=== PATIENT | male | born 1980 | race Two or more races ===

== ENCOUNTER 2018-06-29 12:30 | Inpatient (IN) | payer BC ==
[~2018-06-29] VITALS: Ht 175.3 cm; Wt 83.0 kg
[2018-06-29 15:00] VITALS: BP 113/73
[2018-06-29] MEDS ORDERED: PROP10TA PO (17:15)
[2018-06-29] MEDS ORDERED: TRAZ-85 PO (17:15)
[2018-06-29] MEDS ORDERED: ASPI325T11 PO (17:15)
[2018-06-29] MEDS ORDERED: SERT50TA PO (17:15)
[2018-06-29] MEDS ORDERED: CHOL10003 PO (17:17)
--- NOTE | 2018-06-29 18:38 | HP ---
ADMIT DATE: 06/29/2018 CHIEF COMPLAINT: DVT. HISTORY OF PRESENT ILLNESS: The patient is a pleasant middle-aged male who showed up on the floor today, was told to come in as a direct admit. I never really got a call. I am not sure if one of our departments may have gotten a call, but I told the team that we would do the right thing and take care of the patient. Apparently, I think he may have come from one of the Orthopedics office. DICTATION ENDS HERE MAGUI RECINOS DO DR: ROSIO/park JOB#: [id number] / [id number]
--- NOTE | 2018-06-29 18:46 | HP ---
ADMIT DATE: 06/29/2018 CHIEF COMPLAINT: DVT. HISTORY OF PRESENT ILLNESS: The patient is a pleasant middle-aged male who showed up on the floor today as a direct admit. I am not sure who they called. The nurses called me and explained that he showed up and I really did not know anything about him, maybe they called one of my partners. I did accept the patient. We got him fully admitted. We started him on Lovenox. An hour or so later, I did get a call from Dr. Waller's office from a nurse. She states that they had a patient that they want to send over, so I suspect maybe that is where he came from. Nevertheless, we are treating the patient. We gave him Lovenox. I get his home meds going and get him treated. PAST MEDICAL HISTORY: Hypertension, depression, anxiety. ALLERGIES: None. FAMILY HISTORY: Hypertension. SOCIAL HISTORY: I do not think he drinks, smokes or takes drugs. His mom is here with him. I think he might live with his mom. MEDICATIONS: Reviewed. He is on propranolol, aspirin, Zoloft, trazodone, and vitamin D. REVIEW OF SYSTEMS: GENERAL: No history of weight change, weakness or fevers. SKIN: No bruising, hair changes or rashes. EYES: No blurred, double or loss of vision. NOSE AND THROAT: No history of nosebleeds, hoarseness or sore throat. HEART: No history of palpitations, chest pain or shortness of breath on exertion. LUNGS: Denies cough, hemoptysis, wheezing or shortness of breath. GASTROINTESTINAL: Denies changes in appetite, nausea, vomiting, diarrhea or constipation. GENITOURINARY: No history of frequency, urgency, hesitancy or nocturia. NEUROLOGIC: Denies history of numbness, tingling, tremor or weakness. PSYCHIATRIC: No history of panic, anxiety or depression. ENDOCRINE: No history of heat or cold intolerance, polyuria or polydipsia. EXTREMITIES: He complains of leg pain. PHYSICAL EXAMINATION: VITAL SIGNS: Temperature afebrile, pulse 86, respirations 20, blood pressure 113/73. GENERAL: He is alert, cooperative. His mom is present and seems to be good support for him. HEART: Normal S1, S2. LUNGS: Clear. ABDOMEN: Soft. EXTREMITIES: The right leg is swollen and tender to touch. Pedal pulses are intact. ENDOCRINE: No thyromegaly. LYMPHATICS: No cervical nodes. HEMATOPOIETIC: No bruising. LABORATORY DATA: Pending. Lower extremity ultrasound was done, I guess as an outpatient. It does show an occlusive thrombus in the femoral vein and in the right thigh. ASSESSMENT AND PLAN: Deep venous thrombosis. Start Lovenox 1 mg/kg subQ q.12h. Consult Vascular Surgery. Resume his home meds. MAGUI RCEINOS DO DR: ROSIO/park JOB#: [id number] / [id number]
[2018-06-29 19:00] VITALS: BP 116/76
[2018-06-29 22:58] VITALS: BP_SYST 113; BP_SYST 128; BP_DIAS 65; BP_DIAS 76
[2018-06-29] MEDS: PROPRANOLOL 10 MG TABLET. PO SCH (23:00)
[2018-06-29] MEDS: traZODone 50 MG TABLET. PO SCH (23:57)
[2018-06-30 03:07] VITALS: BP 105/65
[2018-06-30 04:55] LABS: BASO % 1 % (0-3); EOS # 0.2 x10^3/uL (0.0-0.7); EOS % 3 % (0-3); HEMATOCRIT 38.1 % (39.0-53.0); HEMOGLOBIN 13.1 g/dL (13.0-17.5); LYMPH % 32 % (24-48); MEAN CORPUSCULAR HEMOGLOBIN 30 pg (25-35); MEAN CORPUSCULAR HGB CONC 35 g/dL (31-37); MEAN CORPUSCULAR VOLUME 87 fL (79-100); MONO # 0.5 x10^3/uL (0.0-1.1); MONO % 7 % (0-9); NEUT # 3.6 x10^3uL (1.8-7.7); NEUT % 57 % (31-73); PLATELET COUNT 216 x10^3/uL (140-400); RED BLOOD COUNT 4.38 x10^6/uL (4.30-5.70); RED CELL DISTRIBUTION WIDTH 14.3 % (11.5-14.5); WHITE BLOOD COUNT 6.3 x10^3/uL (4.0-11.0)
[2018-06-30 05:45] LABS: ALBUMIN 3.2 g/dL (3.4-5.0); ALBUMIN/GLOBULIN RATIO 0.8 (1.0-1.7); CALCIUM 9.3 mg/dL (8.5-10.1); CREATININE 0.9 mg/dL (0.7-1.3); GFR 94.4; POTASSIUM 3.5 mmol/L (3.5-5.1); TOTAL BILIRUBIN 0.2 mg/dL (0.2-1.0); TOTAL PROTEIN 7.1 g/dL (6.4-8.2)
[2018-06-30 07:00] VITALS: BP 111/68
[2018-06-30] MEDS: CHOLECALCIFEROL (VITAMIN D3) 1,000 UNIT TABLET PO SCH (07:40)
[2018-06-30] MEDS: PROPRANOLOL 10 MG TABLET. PO SCH ×3 (07:41→20:38)
[2018-06-30] MEDS: SERTRALINE 50 MG TABLET. PO SCH (07:41)
--- NOTE | 2018-06-30 08:13 | PDOC2 ---
MARK CORREIA HOUSEHOLD PERSONAL ASSISTANT 06/30/18 0813: CONSULT Date of Consult Date of Consult DATE: 06/30/18 TIME: 08:03 Reason for Consult Reason for Consult: Multiple recent surgeries on bilateral legs and DVT Referring Physician Referring Physician: Dr Mari Identification/Chief Complaint Chief Complaint ?DVT Source Source: Chart review, Unable to obtain due to (Other) History of Present Illness Reason for Visit: Multiple surgeries since 02/2018 with reported DVT Past Surgical History Past Surgical History: Other (family reports 9 surgeries in 2018 on bilateral lower extremities) Current Medications Current Medications Current Medications Enoxaparin Sodium (Lovenox Per Pharmacy Treatment Dosing) 1 each PRN DAILY PRN MC SEE COMMENTS; Start 06/29/18 at 14:30 Enoxaparin Sodium (Lovenox 80mg Syringe) 80 mg Q12HR SQ Last administered on at 07:40; Start 06/29/18 at 18:00 Aspirin (Ecotrin) 325 mg DAILY PO ; Start 06/30/18 at 09:00 Vitamin D (Vitamin D3) 1,000 unit DAILY PO Last administered on 06/30/18at 07:40 ; Start 06/30/18 at 09:00 Sertraline HCl (Zoloft) 50 mg DAILY PO Last administered on 06/30/18at 07:41; Start 06/30/18 at 09:00 Trazodone HCl (Desyrel) 50 mg QHS PO Last administered on 06/29/18at 23:57; Start 06/29/18 at 23:00 Propranolol HCl (Inderal) 10 mg TID PO Last administered on 06/30/18at 07:41; Start 06/29/18 at 23:00 Active Scripts Active Reported Vitamin D3 (Cholecalciferol (Vitamin D3)) 1,000 Unit Tablet 1 Tab PO DAILY Propranolol Hcl 10 Mg Tablet 1 Tab PO TID Trazodone Hcl 50 Mg Tablet 1 Tab PO QHS Zoloft (Sertraline Hcl) 50 Mg Tablet 1 Tab PO DAILY Aspirin Ec (Aspirin) 325 Mg Tablet. 1 Tab PO DAILY PRN Allergies Allergies: Coded Allergies: No Known Drug Allergies (Unverified , 06/29/18) Physical Exam General: Alert, Cooperative, Other (unable to communicate r/t language barrier) MUSCULOSKELETAL: Abnormal exam of both (lower extremities with recent surgery) Vitals VITALS Vital Signs Date Time Temp Pulse Resp B/P (MAP) Pulse Ox O2 Delivery O2 Flow Rate FiO2 06/30/18 07:41 100 111/68 06/30/18 03:07 98.6 17 96 Room Air 98.6 Labs Labs Laboratory Tests Test 06/30/18 04:30 White Blood Count 6.3 x10^3/uL (4.0-11.0) Red Blood Count 4.38 x10^6/uL (4.30-5.70) Hemoglobin 13.1 g/dL (13.0-17.5) Hematocrit 38.1 % (39.0-53.0) Mean Corpuscular Volume 87 fL (79-100) Mean Corpuscular Hemoglobin 30 pg (25-35) Mean Corpuscular Hemoglobin Concent 35 g/dL (31-37) Red Cell Distribution Width 14.3 % (11.5-14.5) Platelet Count 216 x10^3/uL (140-400) Neutrophils (%) (Auto) 57 % (31-73) Lymphocytes (%) (Auto) 32 % (24-48) Monocytes (%) (Auto) 7 % (0-9) Eosinophils (%) (Auto) 3 % (0-3) Basophils (%) (Auto) 1 % (0-3) Neutrophils # (Auto) 3.6 x10^3uL (1.8-7.7) Lymphocytes # (Auto) 2.0 x10^3/uL (1.0-4.8) Monocytes # (Auto) 0.5 x10^3/uL (0.0-1.1) Eosinophils # (Auto) 0.2 x10^3/uL (0.0-0.7) Basophils # (Auto) 0.0 x10^3/uL (0.0-0.2) Sodium Level 141 mmol/L (136-145) Potassium Level 3.5 mmol/L (3.5-5.1) Chloride Level 103 mmol/L (98-107) Carbon Dioxide Level 30 mmol/L (21-32) Anion Gap 8 (6-14) Blood Urea Nitrogen 9 mg/dL (8-26) Creatinine 0.9 mg/dL (0.7-1.3) Estimated GFR (Cockcroft-Gault) 94.4 BUN/Creatinine Ratio 10 (6-20) Glucose Level 113 mg/dL (70-99) Calcium Level 9.3 mg/dL (8.5-10.1) Total Bilirubin 0.2 mg/dL (0.2-1.0) Aspartate Amino Transf (AST/SGOT) 15 U/L (15-37) Alanine Aminotransferase (ALT/SGPT) 38 U/L (16-63) Alkaline Phosphatase 156 U/L (46-116) Total Protein 7.1 g/dL (6.4-8.2) Albumin 3.2 g/dL (3.4-5.0) Albumin/Globulin Ratio 0.8 (1.0-1.7) Laboratory Tests Test 06/30/18 04:30 White Blood Count 6.3 x10^3/uL (4.0-11.0) Red Blood Count 4.38 x10^6/uL (4.30-5.70) Hemoglobin 13.1 g/dL (13.0-17.5) Hematocrit 38.1 % (39.0-53.0) Mean Corpuscular Volume 87 fL (79-100) Mean Corpuscular Hemoglobin 30 pg (25-35) Mean Corpuscular Hemoglobin Concent 35 g/dL (31-37) Red Cell Distribution Width 14.3 % (11.5-14.5) Platelet Count 216 x10^3/uL (140-400) Neutrophils (%) (Auto) 57 % (31-73) Lymphocytes (%) (Auto) 32 % (24-48) Monocytes (%) (Auto) 7 % (0-9) Eosinophils (%) (Auto) 3 % (0-3) Basophils (%) (Auto) 1 % (0-3) Neutrophils # (Auto) 3.6 x10^3uL (1.8-7.7) Lymphocytes # (Auto) 2.0 x10^3/uL (1.0-4.8) Monocytes # (Auto) 0.5 x10^3/uL (0.0-1.1) Eosinophils # (Auto) 0.2 x10^3/uL (0.0-0.7) Basophils # (Auto) 0.0 x10^3/uL (0.0-0.2) Sodium Level 141 mmol/L (136-145) Potassium Level 3.5 mmol/L (3.5-5.1) Chloride Level 103 mmol/L (98-107) Carbon Dioxide Level 30 mmol/L (21-32) Anion Gap 8 (6-14) Blood Urea Nitrogen 9 mg/dL (8-26) Creatinine 0.9 mg/dL (0.7-1.3) Estimated GFR (Cockcroft-Gault) 94.4 BUN/Creatinine Ratio 10 (6-20) Glucose Level 113 mg/dL (70-99) Calcium Level 9.3 mg/dL (8.5-10.1) Total Bilirubin 0.2 mg/dL (0.2-1.0) Aspartate Amino Transf (AST/SGOT) 15 U/L (15-37) Alanine Aminotransferase (ALT/SGPT) 38 U/L (16-63) Alkaline Phosphatase 156 U/L (46-116) Total Protein 7.1 g/dL (6.4-8.2) Albumin 3.2 g/dL (3.4-5.0) Albumin/Globulin Ratio 0.8 (1.0-1.7) Images Images Will order images of pelvis,hip and feet. Assessment/Plan Assessment/Plan Will order images of lower extremities for evaluation. DVT treatment per admitting DANIEL BUCIO II, MD 07/04/18 1235: CONSULT Assessment/Plan Assessment/Plan Patient seen and examined, treatment plan formulated by myself MARK CORREIA APRN Jun 30, 2018 08:13 DANIEL BUCIO II, MD Jul 04, 2018 12:35
[2018-06-30] MEDS ORDERED: ASPIRIN ENTERIC COATED 325 MG TABLET.DR. PO SCH (09:00)
--- NOTE | 2018-06-30 09:57 | RAD ---
Pelvis with right hip, 3 views, 06/30/2018: HISTORY: Hip pain There is an old, healed, internally fixed right hip fracture. There is minimal narrowing of the right hip joint. There is extensive dystrophic calcification in the periarticular soft tissues extending into the right upper thigh. There are also prominent dystrophic soft tissue calcifications along the lateral aspect of the left iliac bone and to a lesser degree on the right. The findings are presumably on a posttraumatic basis. The left hip joint is unremarkable. No acute fracture or dislocation is evident. IMPRESSION: 1. Old, healed, internally fixed right hip fracture. 2. Extensive dystrophic soft tissue calcifications about the right hip and proximal right femur and to a lesser degree along the lateral margins of the iliac wings, left greater than right. Electronically signed by: Trae Kenny MD (06/30/2018 9:54 AM) [facility]
--- NOTE | 2018-06-30 10:06 | RAD ---
Right tibia and fibula, 2 views, 06/30/2018: HISTORY: Pain, old injuries There is a metallic plate with multiple screws transfixing a comminuted proximal tibial fracture. The major fracture right which appear to be in satisfactory position for healing. Portions of the fracture lines are still visible. Fracture lines involve the articular surface. Periarticular calcifications are present along the lateral aspect of the knee joint. There are old pin tracks present in the mid tibia. Moderate subcutaneous edema is evident. IMPRESSION: Incompletely healed, internally fixed comminuted proximal tibial fracture Left tibia and fibula, 2 views, 06/30/2018: An intramedullary marlee is present transfixing an old distal tibial fracture. There is callus formation at the fracture site. Portions of the fracture line are still visible. There is a nontransfixed displaced fracture fragment laterally. There is bridging callus at the site of an old distal fibular shaft fracture. Portions of that fracture line are still visible. There is moderate subcutaneous edema. IMPRESSION: 1. Internally fixed partially healed distal tibial shaft fracture. 2. Partially healed distal fibular fracture. Bilateral feet, 6 views, 06/30/2018: There is slight cortical fragmentation along the medial margin of the distal end of the right first cuneiform bone adjacent to the first tarsal-metatarsal joint. No other recent fracture or dislocation is identified. There is mild degenerative change at the right first MTP joint. IMPRESSION: 1. Small cortical fracture along the medial margin of the right first cuneiform bone adjacent to the tarsal-metatarsal articulation. 2. No other foot fracture is identified. Electronically signed by: Trae Kenny MD (06/30/2018 10:03 AM) [facility]
[2018-06-30] MEDS ORDERED: ONDANSETRON PF 4 MG/2 ML VIAL. IV PRN (10:15)
[2018-06-30] MEDS ORDERED: MORPHINE SULFATE 2 MG/ML VIAL. IV PRN (10:15)
[2018-06-30] MEDS ORDERED: DOCUSATE SODIUM 100 MG CAPSULE. PO PRN (10:15)
[2018-06-30] MEDS ORDERED: traMADol 50 MG TABLET PO PRN (10:15)
[2018-06-30] MEDS ORDERED: ACETAMINOPHEN 325 MG TABLET. PO PRN (10:15)
[2018-06-30 11:04] VITALS: BP 123/90
[2018-06-30] MEDS ORDERED: ANTI-COAG MONITOR BY PHARMACY. MC PRN (12:45)
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
--- NOTE | 2018-06-30 13:54 | PDOC ---
PROGRESS NOTES Chief Complaint Chief Complaint rt leg dvt , provoked by fx recent rt tibia fx s/p sx in [place] rt foot drop post trauma recent resp failure, coma s/p trach, removed HTN depression mild malnutrition plan: onco consulted, stefania with brenda. now on lovenox bid. will change to eliquis if no sx planed. asked nurse to call dr. Joaquin to see if will see the pt since pt was sent from dr. Joaquin's office, if not, dr. Shook will take over. XR ordered by IT OPERATIONS ANALYST, showed partially or completely healed rt tibial fx and mild foot fx. PTOT talked to dr. Chaney. dc soon. History of Present Illness History of Present Illness ROS: no fever, chills, sob or chest pain taiwanese speaking rt leg swelling, barely move when i saw him but walk ok denies leg pain Vitals Vitals Vital Signs Date Time Temp Pulse Resp B/P (MAP) Pulse Ox O2 Delivery O2 Flow Rate FiO2 06/30/18 11:17 100 123/90 06/30/18 11:04 98.5 24 94 Room Air 98.5 Physical Exam General: Alert, Cooperative, Other (unable to communicate r/t language barrier) Heart: Regular rate, Normal S1, Normal S2 Lungs: Clear Abdomen: Normal bowel sounds Extremities: No clubbing, No cyanosis, Other (rt lower ext moderate swelling, no tenderness.) Skin: No rashes Labs LABS Laboratory Tests Test 06/30/18 04:30 White Blood Count 6.3 x10^3/uL (4.0-11.0) Red Blood Count 4.38 x10^6/uL (4.30-5.70) Hemoglobin 13.1 g/dL (13.0-17.5) Hematocrit 38.1 % (39.0-53.0) Mean Corpuscular Volume 87 fL (79-100) Mean Corpuscular Hemoglobin 30 pg (25-35) Mean Corpuscular Hemoglobin Concent 35 g/dL (31-37) Red Cell Distribution Width 14.3 % (11.5-14.5) Platelet Count 216 x10^3/uL (140-400) Neutrophils (%) (Auto) 57 % (31-73) Lymphocytes (%) (Auto) 32 % (24-48) Monocytes (%) (Auto) 7 % (0-9) Eosinophils (%) (Auto) 3 % (0-3) Basophils (%) (Auto) 1 % (0-3) Neutrophils # (Auto) 3.6 x10^3uL (1.8-7.7) Lymphocytes # (Auto) 2.0 x10^3/uL (1.0-4.8) Monocytes # (Auto) 0.5 x10^3/uL (0.0-1.1) Eosinophils # (Auto) 0.2 x10^3/uL (0.0-0.7) Basophils # (Auto) 0.0 x10^3/uL (0.0-0.2) Sodium Level 141 mmol/L (136-145) Potassium Level 3.5 mmol/L (3.5-5.1) Chloride Level 103 mmol/L (98-107) Carbon Dioxide Level 30 mmol/L (21-32) Anion Gap 8 (6-14) Blood Urea Nitrogen 9 mg/dL (8-26) Creatinine 0.9 mg/dL (0.7-1.3) Estimated GFR (Cockcroft-Gault) 94.4 BUN/Creatinine Ratio 10 (6-20) Glucose Level 113 mg/dL (70-99) Calcium Level 9.3 mg/dL (8.5-10.1) Total Bilirubin 0.2 mg/dL (0.2-1.0) Aspartate Amino Transf (AST/SGOT) 15 U/L (15-37) Alanine Aminotransferase (ALT/SGPT) 38 U/L (16-63) Alkaline Phosphatase 156 U/L (46-116) Total Protein 7.1 g/dL (6.4-8.2) Albumin 3.2 g/dL (3.4-5.0) Albumin/Globulin Ratio 0.8 (1.0-1.7) 25-Hydroxy Vitamin D Total 36.8 ng/mL (30-100) Comment Review of Relevant I have reviewed the following items chele (where applicable) has been applied. Labs Laboratory Tests Test 06/30/18 04:30 White Blood Count 6.3 x10^3/uL (4.0-11.0) Red Blood Count 4.38 x10^6/uL (4.30-5.70) Hemoglobin 13.1 g/dL (13.0-17.5) Hematocrit 38.1 % (39.0-53.0) Mean Corpuscular Volume 87 fL (79-100) Mean Corpuscular Hemoglobin 30 pg (25-35) Mean Corpuscular Hemoglobin Concent 35 g/dL (31-37) Red Cell Distribution Width 14.3 % (11.5-14.5) Platelet Count 216 x10^3/uL (140-400) Neutrophils (%) (Auto) 57 % (31-73) Lymphocytes (%) (Auto) 32 % (24-48) Monocytes (%) (Auto) 7 % (0-9) Eosinophils (%) (Auto) 3 % (0-3) Basophils (%) (Auto) 1 % (0-3) Neutrophils # (Auto) 3.6 x10^3uL (1.8-7.7) Lymphocytes # (Auto) 2.0 x10^3/uL (1.0-4.8) Monocytes # (Auto) 0.5 x10^3/uL (0.0-1.1) Eosinophils # (Auto) 0.2 x10^3/uL (0.0-0.7) Basophils # (Auto) 0.0 x10^3/uL (0.0-0.2) Sodium Level 141 mmol/L (136-145) Potassium Level 3.5 mmol/L (3.5-5.1) Chloride Level 103 mmol/L (98-107) Carbon Dioxide Level 30 mmol/L (21-32) Anion Gap 8 (6-14) Blood Urea Nitrogen 9 mg/dL (8-26) Creatinine 0.9 mg/dL (0.7-1.3) Estimated GFR (Cockcroft-Gault) 94.4 BUN/Creatinine Ratio 10 (6-20) Glucose Level 113 mg/dL (70-99) Calcium Level 9.3 mg/dL (8.5-10.1) Total Bilirubin 0.2 mg/dL (0.2-1.0) Aspartate Amino Transf (AST/SGOT) 15 U/L (15-37) Alanine Aminotransferase (ALT/SGPT) 38 U/L (16-63) Alkaline Phosphatase 156 U/L (46-116) Total Protein 7.1 g/dL (6.4-8.2) Albumin 3.2 g/dL (3.4-5.0) Albumin/Globulin Ratio 0.8 (1.0-1.7) 25-Hydroxy Vitamin D Total 36.8 ng/mL (30-100) Laboratory Tests Test 06/30/18 04:30 White Blood Count 6.3 x10^3/uL (4.0-11.0) Red Blood Count 4.38 x10^6/uL (4.30-5.70) Hemoglobin 13.1 g/dL (13.0-17.5) Hematocrit 38.1 % (39.0-53.0) Mean Corpuscular Volume 87 fL (79-100) Mean Corpuscular Hemoglobin 30 pg (25-35) Mean Corpuscular Hemoglobin Concent 35 g/dL (31-37) Red Cell Distribution Width 14.3 % (11.5-14.5) Platelet Count 216 x10^3/uL (140-400) Neutrophils (%) (Auto) 57 % (31-73) Lymphocytes (%) (Auto) 32 % (24-48) Monocytes (%) (Auto) 7 % (0-9) Eosinophils (%) (Auto) 3 % (0-3) Basophils (%) (Auto) 1 % (0-3) Neutrophils # (Auto) 3.6 x10^3uL (1.8-7.7) Lymphocytes # (Auto) 2.0 x10^3/uL (1.0-4.8) Monocytes # (Auto) 0.5 x10^3/uL (0.0-1.1) Eosinophils # (Auto) 0.2 x10^3/uL (0.0-0.7) Basophils # (Auto) 0.0 x10^3/uL (0.0-0.2) Sodium Level 141 mmol/L (136-145) Potassium Level 3.5 mmol/L (3.5-5.1) Chloride Level 103 mmol/L (98-107) Carbon Dioxide Level 30 mmol/L (21-32) Anion Gap 8 (6-14) Blood Urea Nitrogen 9 mg/dL (8-26) Creatinine 0.9 mg/dL (0.7-1.3) Estimated GFR (Cockcroft-Gault) 94.4 BUN/Creatinine Ratio 10 (6-20) Glucose Level 113 mg/dL (70-99) Calcium Level 9.3 mg/dL (8.5-10.1) Total Bilirubin 0.2 mg/dL (0.2-1.0) Aspartate Amino Transf (AST/SGOT) 15 U/L (15-37) Alanine Aminotransferase (ALT/SGPT) 38 U/L (16-63) Alkaline Phosphatase 156 U/L (46-116) Total Protein 7.1 g/dL (6.4-8.2) Albumin 3.2 g/dL (3.4-5.0) Albumin/Globulin Ratio 0.8 (1.0-1.7) 25-Hydroxy Vitamin D Total 36.8 ng/mL (30-100) Medications Current Medications Enoxaparin Sodium (Lovenox Per Pharmacy Treatment Dosing) 1 each PRN DAILY PRN MC SEE COMMENTS; Start 06/29/18 at 14:30 Enoxaparin Sodium (Lovenox 80mg Syringe) 80 mg Q12HR SQ Last administered on at 07:40; Start 06/29/18 at 18:00 Aspirin (Ecotrin) 325 mg DAILY PO ; Start 06/30/18 at 09:00; Stop 06/30/18 at 10 :13; Status DC Vitamin D (Vitamin D3) 1,000 unit DAILY PO Last administered on 06/30/18at 07:40 ; Start 06/30/18 at 09:00 Sertraline HCl (Zoloft) 50 mg DAILY PO Last administered on 06/30/18at 07:41; Start 06/30/18 at 09:00 Trazodone HCl (Desyrel) 50 mg QHS PO Last administered on 06/29/18at 23:57; Start 06/29/18 at 23:00 Propranolol HCl (Inderal) 10 mg TID PO Last administered on 06/30/18at 11:17; Start 06/29/18 at 23:00 Acetaminophen (Tylenol) 650 mg PRN Q6HRS PRN PO FEVER; Start 06/30/18 at 10:15 Ondansetron HCl (Zofran) 4 mg PRN Q6HRS PRN IV NAUSEA/VOMITING; Start 06/30/18 at 10:15 Morphine Sulfate (Morphine Sulfate) 2 mg PRN Q2HR PRN IV MODERATE TO SEVERE PAIN; Start 06/30/18 at 10:15 Tramadol HCl (Ultram) 50 mg PRN Q6HRS PRN PO MILD TO MODERATE PAIN; Start 06/30 at 10:15 Docusate Sodium (Colace) 100 mg PRN DAILY PRN PO CONSTIPATION; Start 06/30/18 at 10:15 Info (Anti-Coagulation Monitoring By Pharmacy) 1 each PRN DAILY PRN MC SEE COMMENTS Last administered on 06/30/18at 12:44; Start 06/30/18 at 12:45 Active Scripts Active Reported Vitamin D3 (Cholecalciferol (Vitamin D3)) 1,000 Unit Tablet 1 Tab PO DAILY Propranolol Hcl 10 Mg Tablet 1 Tab PO TID Trazodone Hcl 50 Mg Tablet 1 Tab PO QHS Zoloft (Sertraline Hcl) 50 Mg Tablet 1 Tab PO DAILY Aspirin Ec (Aspirin) 325 Mg Tablet. 1 Tab PO DAILY PRN Vitals/I & O Vital Sign - Last 24 Hours 06/29/18 06/29/18 06/29/18 06/29/18 15:00 19:00 20:02 22:58 Temp 98.2 98.4 98.2 98.2 98.4 98.2 Pulse 86 79 73 Resp 20 18 17 B/P (MAP) 113/73 (86) 116/76 (89) 113/76 (88) Pulse Ox 95 93 96 O2 Delivery Room Air Room Air Room Air Room Air 06/30/18 06/30/18 06/30/18 06/30/18 03:07 07:00 07:41 08:00 Temp 98.6 98.0 98.6 98.0 Pulse 81 100 100 Resp 17 20 B/P (MAP) 105/65 (78) 111/68 (82) 111/68 Pulse Ox 96 95 O2 Delivery Room Air Room Air Room Air 06/30/18 06/30/18 11:04 11:17 Temp 98.5 98.5 Pulse 100 100 Resp 24 B/P (MAP) 123/90 (101) 123/90 Pulse Ox 94 O2 Delivery Room Air Intake and Output 06/29/18 06/29/18 06/30/18 15:00 23:00 07:00 Intake Total 300 ml 420 ml Output Total 200 ml Balance 100 ml 420 ml MARCELA RUVALCABA MD Jun 30, 2018 13:54
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
[2018-06-30 15:08] VITALS: BP 107/68
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
[2018-06-30 19:00] VITALS: BP 113/76
[2018-06-30] MEDS: traZODone 50 MG TABLET. PO SCH (20:19)
[2018-06-30 23:00] VITALS: BP 121/79
[2018-07-01 03:00] VITALS: BP 109/70
[2018-07-01 07:00] VITALS: BP 111/75
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
[2018-07-01] MEDS: PROPRANOLOL 10 MG TABLET. PO SCH ×2 (09:03→14:26)
[2018-07-01] MEDS: CHOLECALCIFEROL (VITAMIN D3) 1,000 UNIT TABLET PO SCH (09:03)
[2018-07-01] MEDS: SERTRALINE 50 MG TABLET. PO SCH (09:04)
[2018-07-01] MEDS ORDERED: ANTI-COAG MONITOR BY PHARMACY. MC PRN (10:00)
[2018-07-01 11:00] VITALS: BP 113/73
[2018-07-01] MEDS ORDERED: APIX5TAB PO (11:22)
--- NOTE | 2018-07-01 11:25 | DISCH ---
DISCHARGE WITH HOME HEALTH DISCHARGE INFORMATION: Discharge Date: Jul 01, 2018 Final Diagnosis: DVT Condition on Discharge: Stable CODE STATUS: Code Status: Full HOME HEALTH: Face to Face: I certify this patient is under my care and that I, or a nurse practitioner or physician's assistant winemaker working with me, had a face to face encounter that meets the physician face to face encounter requirements with this patient on []. Physical Therapy For: Evalulation/Treatment Occupational Therapy For: Evaluation/Treatment POST DISCHARGE ORDERS: Activity Instructions for Disc: Activity as tolerated Weight Bearing Status after Di: No restrictions DIET AFTER DISCHARGE: Regular FOLLOW-UP: Follow up with: PCP and orthopedics in 2 weeks. continue eliquis for 6months. TREATMENT/EQUIPMENT ORDERS: Adaptive Equipment Issued: Front wheeled walker CERTIFICATION STATEMENT: Certification Statement: Certification Statement: Based on the above finding, I certify that this patient is confined to the home and needs intermittent fdc care, physical therapy and/or speech therapy, or continues to need occupational therapy.~ This patient is under my care, and I have initiated the establishment of the plan of care.~ This patient will be followed by myself or a community physician who will periodically review the plan of care. Home Meds Active Scripts Apixaban (ELIQUIS) 5 Mg Tablet, 10 MG PO BID for dvt, #90 TAB Prov:MARCELA RUVALCABA MD 07/01/18 Reported Medications Cholecalciferol (Vitamin D3) (VITAMIN D3) 1,000 Unit Tablet, 1 TAB PO DAILY for supplement, #30 TAB 5 Refills 06/29/18 Propranolol Hcl (PROPRANOLOL HCL) 10 Mg Tablet, 1 TAB PO TID for high blood pressure, #60 TAB 1 Refill 06/29/18 Trazodone Hcl (TRAZODONE HCL) 50 Mg Tablet, 1 TAB PO QHS for to help sleep, #30 TAB 1 Refill 06/29/18 Sertraline Hcl (ZOLOFT) 50 Mg Tablet, 1 TAB PO DAILY for depression, #30 TAB 2 Refills 06/29/18 Discontinued Reported Medications Aspirin (ASPIRIN EC) 325 Mg Tablet.dr, 1 TAB PO DAILY PRN for prevent blood clots, #30 TAB 5 Refills 06/29/18 MARCELA RUVALCABA MD Jul 01, 2018 11:25
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
[2018-07-01 12:48] LABS: BASO % 1 % (0-3); EOS # 0.2 x10^3/uL (0.0-0.7); EOS % 3 % (0-3); HEMATOCRIT 42.9 % (39.0-53.0); HEMOGLOBIN 14.9 g/dL (13.0-17.5); LYMPH # 1.7 x10^3/uL (1.0-4.8); LYMPH % 28 % (24-48); MEAN CORPUSCULAR HEMOGLOBIN 30 pg (25-35); MEAN CORPUSCULAR HGB CONC 35 g/dL (31-37); MEAN CORPUSCULAR VOLUME 88 fL (79-100); MONO # 0.4 x10^3/uL (0.0-1.1); MONO % 6 % (0-9); NEUT % 63 % (31-73); PLATELET COUNT 239 x10^3/uL (140-400); RED BLOOD COUNT 4.89 x10^6/uL (4.30-5.70); RED CELL DISTRIBUTION WIDTH 14.6 % (11.5-14.5); WHITE BLOOD COUNT 6.3 x10^3/uL (4.0-11.0)
[2018-07-01 13:01] LABS: CALCIUM 9.9 mg/dL (8.5-10.1); CREATININE 0.9 mg/dL (0.7-1.3); GFR 94.4; POTASSIUM 4.8 mmol/L (3.5-5.1)
[2018-07-01 14:26] VITALS: BP 113/73
[2018-07-01] MEDS ORDERED: APIXABAN 5 MG TABLET. PO SCH (21:00)
== END 2018-07-01 14:45 | disposition home or self-care (01) | DRG 300 ==
LOC: EDSEX → 5 SOUTH 13:01
PROVIDERS: ADMIT Internal Medicine; ATTEND Internal Medicine
DX: I82.411 Acute embolism and thrombosis of right femoral vein (principal); E44.1 Mild protein-calorie malnutrition; I10 Essential (primary) hypertension; F32.9 Major depressive disorder, single episode, unspecified; F41.9 Anxiety disorder, unspecified; Z82.49 Family history of ischemic heart disease and other diseases of the circulatory system; Z68.27 Body mass index [BMI] 27.0-27.9, adult
CPT/HCPCS: 36415; 73501; 73590; 73630; 80048; 80053; 82306; 85025; J1650

== ENCOUNTER → 2018-06-29 | Outpatient (CLI) | payer BC ==
[~2018-06-29] MED LIST: ASPI325T11 PO; CHOL10003 PO; PROP10TA PO; SERT50TA PO; TRAZ-85 PO
--- NOTE | 2018-06-29 12:38 | RAD ---
Right lower extremity venous ultrasound, 06/29/2018: History: Right leg, previous femur fracture Duplex evaluation including grayscale, color flow and spectral Doppler analysis was performed. The right common femoral vein is patent. The superficial femoral vein in the upper thigh is patent. There is occlusive thrombus in the superficial femoral vein beginning in the mid thigh. There is duplication of that vein in the distal thigh where 1 vein is patent and the other vein contains occlusive thrombus. The right popliteal vein is patent. The visualized deep veins in the right calf are unremarkable. IMPRESSION: Occlusive thrombus in the femoral vein in the right thigh as described above. Note: The results were given to Dr. Joaquin's nurse by the public health technologist, and patient admission is planned. Electronically signed by: Trae Kenny MD (06/29/2018 12:35 PM) [facility]
== END | disposition home or self-care (01) ==
LOC: EDSEX → US 11:30
PROVIDERS: ATTEND Orthopaedic Surgery
DX: I82.411 Acute embolism and thrombosis of right femoral vein (principal)
CPT/HCPCS: 93971